=== PATIENT | male | born 1980 | race Two or more races ===

== ENCOUNTER 2018-06-28 09:52 | Emergency (ER) | payer SELFPAY ==
[2018-06-28 10:16] VITALS: BP 115/65
--- NOTE | 2018-06-28 11:06 | ER Document Report ---
HPI - HPI Pain Level: 1 - CONSTITUTIONAL Constitutional: DENIES: Fever, Chills - NEURO Notes: 37-year-old male presents the ED with complaints of having a rash to his genital area for weeks, itchy. was tested for std's. all negative std results. no drainage from penile shaft. eating and drinking without issues. no burning with urination. no sores. Past Medical History - General Information source: Patient - Social History Smoking Status: Current Every Day Smoker Chew tobacco use (# tins/day): No Frequency of alcohol use: Social Drug Abuse: None Family History: Reviewed & Not Pertinent Patient has suicidal ideation: No Patient has homicidal ideation: No Renal/ Medical History: Denies: Hx Peritoneal Dialysis Vertical Provider Document - CONSTITUTIONAL Agree With Documented VS: Yes Exam Limitations: No Limitations Notes: PHYSICAL EXAMINATION: GENERAL: Well-appearing, well-nourished and in no acute distress. HEAD: Atraumatic, normocephalic. EYES: Pupils equal round and reactive to light, extraocular movements intact, sclera anicteric, conjunctiva are normal. ENT: Nares patent, oropharynx clear without exudates. Moist mucous membranes. NECK: Normal range of motion, supple without lymphadenopathy LUNGS: Breath sounds clear to auscultation bilaterally and equal. No wheezes rales or rhonchi. HEART: Regular rate and rhythm without murmurs ABDOMEN: Soft, nontender, nondistended abdomen. No guarding, no rebound. No masses appreciated. Musculoskeletal: Normal range of motion, no pitting or edema. No cyanosis. NEUROLOGICAL: Cranial nerves grossly intact. Normal speech, normal gait. Normal sensory, motor exams PSYCH: Normal mood, normal affect. SKIN: Warm, Dry, normal turgor, no rashes or lesions noted. Noted dry scaly area to base of penile shaft approximately half centimeter by half centimeter. No erythema, surrounding erythema, satellite lesions or linear patterns. - INFECTION CONTROL TRAVEL OUTSIDE OF THE [place] IN LAST 30 DAYS: No Course - Re-evaluation Re-evalutation: 06/28/18 10:55 After performing a Medical Screening Examination, I estimate there is LOW risk for any life threatening rash. At this time the patient looks extremely well and there are no signs of systemic infection, however this may change at any time and the rash may change. I have reevaluated this patient multiple times and no significant life threatening changes are noted. The patient and I have discussed the diagnosis and risks, and we agree with discharging home with close follow-up with the understanding that symptoms and presentations can change. We also discussed returning to the Emergency Department immediately if new or worsening symptoms occur. We have discussed the symptoms which are most concerning (e.g., changing or worsening pain, fever, numbness, weakness, cool or painful digits) that necessitate immediate return. - Vital Signs Vital signs: Temp Pulse Resp BP Pulse Ox 98 F 72 20 115/65 98 06/28/18 10:14 06/28/18 10:14 06/28/18 10:14 06/28/18 10:14 06/28/18 10:14 Discharge - Discharge Clinical Impression: Dermatitis Condition: Stable Disposition: HOME, SELF-CARE Instructions: Topical Steroid Cream or Ointment ([facility]) Additional Instructions: Return immediately for any new or worsening symptoms. Follow up with primary care provider, call tomorrow to make followup appointment. Prescriptions: Triamcinolone Acetonide [Aristocort 0.025% Cream] 1 applic TP BID #30 gram Referrals: MARGARET BENTON MD [Primary Care Provider] - Follow up as needed
== END 2018-06-28 11:12 | disposition home or self-care (01) ==
LOC: ER 09:52
DX: L30.9 Dermatitis, unspecified (principal); F17.200 Nicotine dependence, unspecified, uncomplicated
CPT/HCPCS: 99282